=== PATIENT | female | born 1975 | race Caucasian/White ===

== ENCOUNTER → 2020-05-05 12:40 | Outpatient (BNVA) | payer MEDICARE, MEDICAID, SELFPAY | PROVIDERS: PCP Nurse Practitioner Family; Visit Provider Surgery | DX: Z01.818 Encounter for other preprocedural examination (principal); E66.01 Morbid (severe) obesity due to excess calories; R06.02 Shortness of breath; Z68.41 Body mass index [BMI] 40.0-44.9, adult | CPT/HCPCS: 99202 ==

== ENCOUNTER 2020-05-12 09:22 | Outpatient (REF) | payer MEDICARE, MEDICAID, SELFPAY ==
--- NOTE | ~2020-05-12 | XR_ITS ---
EXAMINATION: XR CHEST CLINICAL INFORMATION: Shortness of breath. COMPARISON: None TECHNIQUE: 2 views of the chest were obtained. FINDINGS: No significant abnormality is noted involving the heart, lungs, mediastinum, bony thorax or soft tissues. XR/XR chest 2V IMPRESSION: No acute cardiopulmonary process.
--- NOTE | 2020-05-12 10:11 | ECG_ITS ---
Test Reason : R06.02 Blood Pressure : / mmHG Vent. Rate : 067 BPM Atrial Rate : 067 BPM P-R Int : 126 ms QRS Dur : 084 ms QT Int : 444 ms P-R-T Axes : 021 001 000 degrees QTc Int : 469 ms Sinus rhythm with Premature supraventricular complexes Otherwise normal ECG No previous ECGs available Referred By: Adela Montes Electronically Signed By:Rodolfo Carroll
[2020-05-12 10:55] LABS: MANUAL DIFF FLAG NO
[2020-05-12 11:01] LABS: Basophils Percent Auto 0.4 % (0-2); Eosinophils Absolute Auto 0.1 X10*3/uL (0.0-0.4); Eosinophils Percent Auto 3.1 % (0-4); Hematocrit 37.7 % (37-47); Hemoglobin 12.6 g/dl (12.0-16.0); Imm Gran Abs Auto 0.01 X10*3/uL (0.00-0.03); Imm Gran Pct Auto 0.2 % (0.0-0.4); Lymphocytes Absolute Auto 1.5 X10*3/uL (1.2-4.9); Lymphocytes Percent Auto 34.2 % (20-40); Mean Corpuscular HGB Conc 33.4 g/dl (31.0-35.0); Mean Corpuscular Hemoglobin 29.9 pg (27.0-33.0); Mean Corpuscular Volume 89.3 fL (80-98); Mean Platelet Volume 10.5 fL (9.4-12.3); Monocytes Absolute Auto 0.4 X10*3/uL (0.1-1.2); Monocytes Percent Auto 8.7 % (2-11); Neutrophils Absolute Auto 2.4 X10*3/uL (2.0-8.3); Neutrophils Percent Auto 53.4 % (45-73); Platelet Count 232 X10*3/uL (160-400); Red Blood Count 4.22 X10*6/uL (4.20-5.50); Red Cell Distribution Width 12.3 % (11.0-16.0); White Blood Count 4.5 X10*3/uL (4.8-10.8)
[2020-05-12 11:26] LABS: Alanine Aminotransferase 20 U/L (0-31); Albumin Level 4.3 g/dL (3.5-5.0); Alkaline Phosphatase 54 U/L (39-117); Anion Gap 12 (12-20); Aspartate Amino Transferase 20 U/L (5-31); Bilirubin Total 0.7 mg/dL (0.0-1.0); Blood Urea Nitrogen 18 mg/dL (9-16); C Reactive Protein 0.53 mg/dL (< or = 0.50); Calcium 8.8 mg/dL (8.4-10.2); Carbon Dioxide 27 mmol/L (22-29); Chloride 104 mmol/L (96-108); Cholesterol 197 mg/dL; Estimated Glomerular Filt Rate > 60; Glucose Fasting 87 mg/dL (60-99); HDL Cholesterol 47 mg/dL; Iron 49 mcg/dL (30-160); LDL Cholesterol Calculated 138 mg/dl; Percent Iron Saturation 14 % (15-50); Potassium 4.5 mmol/L (3.3-5.1); Sodium 138 mmol/L (135-145); Total Iron Binding Capacity 361 mcg/dL (228-428); Triglycerides 64 mg/dL; Unsaturated Iron Binding 312 ug/dL
[2020-05-12 11:38] LABS: Thyroid Stimulating Hormone 2.19 uIU/mL (0.32-4.0); Vitamin D 25-OH Total 16.9 ng/mL (>30)
[2020-05-12 12:05] LABS: Vitamin B12 379 pg/mL (200-900)
[2020-05-13 10:37] LABS: PTHI 43 pg/mL (14-64)
[2020-05-16 07:51] LABS: Vitamin B1 15 nmol/L (8-30)
[2020-05-16 09:06] LABS: Vitamin A 32 mcg/dL (38-98)
[2020-05-17 13:08] LABS: Zinc 86 mcg/dL (60-130)
== END 2020-05-12 09:23 | disposition home or self-care (01) ==
LOC: HO.LAB 09:22
PROVIDERS: Visit Provider Surgery
DX: Z01.818 Encounter for other preprocedural examination (principal); R06.02 Shortness of breath
CPT/HCPCS: 36415; 71046; 80053; 80061; 82306; 82607; 83540; 83970; 84425; 84443; 84590; 84630; 85025; 86140; 93005

== ENCOUNTER → 2020-05-23 08:27 | Outpatient (BNVA) | payer MEDICARE, MEDICAID, SELFPAY | PROVIDERS: PCP Nurse Practitioner Family; Visit Provider Surgery | DX: E66.9 Obesity, unspecified (principal); Z68.38 Body mass index [BMI] 38.0-38.9, adult | CPT/HCPCS: 99212 ==

== ENCOUNTER → 2020-06-07 08:00 | Outpatient (BNVA) | payer MEDICARE, MEDICAID, SELFPAY | PROVIDERS: PCP Nurse Practitioner Family; Visit Provider Dietitian, Registered ==

== ENCOUNTER → 2020-06-20 10:31 | Outpatient (BNVA) | payer MEDICARE, MEDICAID, SELFPAY | PROVIDERS: PCP Nurse Practitioner Family; Visit Provider Surgery | DX: E66.9 Obesity, unspecified (principal); Z68.37 Body mass index [BMI] 37.0-37.9, adult | CPT/HCPCS: 99212 ==

== ENCOUNTER → 2020-06-24 08:05 | Outpatient (BNVA) | payer MEDICARE, MEDICAID, SELFPAY | PROVIDERS: PCP Nurse Practitioner Family; Visit Provider Dietitian, Registered | DX: E66.9 Obesity, unspecified (principal); Z68.37 Body mass index [BMI] 37.0-37.9, adult | CPT/HCPCS: 97802 ==

== ENCOUNTER 2020-07-08 15:11 | Outpatient (REF) | payer MEDICARE, MEDICAID, SELFPAY ==
[2020-07-09 14:22] LABS: H Pylori Breath Test NOT DETECTED (NOT DETECTED)
== END 2020-07-08 15:12 | disposition home or self-care (01) ==
LOC: HO.LNP 15:11
PROVIDERS: PCP Nurse Practitioner Family; Visit Provider Surgery
DX: Z01.818 Encounter for other preprocedural examination (principal); E66.9 Obesity, unspecified; Z68.36 Body mass index [BMI] 36.0-36.9, adult; Z11.0 Encounter for screening for intestinal infectious diseases; Z79.899 Other long term (current) drug therapy
CPT/HCPCS: 83013; 99211; 99212

== ENCOUNTER → 2020-07-15 08:01 | Outpatient (BNVA) | payer MEDICARE, MEDICAID, SELFPAY | PROVIDERS: PCP Nurse Practitioner Family; Visit Provider Dietitian, Registered | DX: E66.9 Obesity, unspecified (principal); Z68.36 Body mass index [BMI] 36.0-36.9, adult | CPT/HCPCS: 97803 ==

== ENCOUNTER 2020-07-18 09:44 | Outpatient (REF) | payer MEDICARE, MEDICAID, SELFPAY ==
[2020-07-22 10:42] LABS: Vitamin A 27 mcg/dL (38-98)
== END 2020-07-18 09:45 | disposition home or self-care (01) ==
LOC: HO.LAB 09:44
PROVIDERS: Visit Provider Surgery
DX: Z01.818 Encounter for other preprocedural examination (principal); E50.9 Vitamin A deficiency, unspecified; E55.9 Vitamin D deficiency, unspecified
CPT/HCPCS: 36415; 82306; 84590

== ENCOUNTER → 2020-08-05 09:09 | Outpatient (BNVA) | payer MEDICARE, MEDICAID, SELFPAY | PROVIDERS: Visit Provider Physician Assistant ==

== ENCOUNTER → 2020-08-08 14:18 | Outpatient (BNVA) | payer MEDICARE, MEDICAID, SELFPAY | PROVIDERS: PCP Nurse Practitioner Family; Visit Provider Surgery | DX: E66.9 Obesity, unspecified (principal); Z68.35 Body mass index [BMI] 35.0-35.9, adult | CPT/HCPCS: 99212 ==

== ENCOUNTER 2020-08-10 09:39 | Inpatient (IN) | payer MEDICARE, MEDICAID, SELFPAY ==
[2020-08-03 15:42] VITALS: BMI 36.6
--- NOTE | 2020-08-08 14:59 | ECG_ITS ---
Test Reason : SOB Blood Pressure : / mmHG Vent. Rate : 054 BPM Atrial Rate : 054 BPM P-R Int : 132 ms QRS Dur : 090 ms QT Int : 456 ms P-R-T Axes : 024 001 011 degrees QTc Int : 432 ms Sinus bradycardia Otherwise normal ECG When compared with ECG of 12-MAY-2020 10:23, Premature supraventricular complexes are no longer Present Referred By: Adela Montes Electronically Signed By:PATRICE BALDERRAMA MD
[2020-08-08 15:49] LABS: MANUAL DIFF FLAG NO
[2020-08-08 15:53] LABS: Basophils Percent Auto 0.6 % (0-2); Eosinophils Absolute Auto 0.2 X10*3/uL (0.0-0.4); Eosinophils Percent Auto 4.2 % (0-4); Hematocrit 37.2 % (37-47); Hemoglobin 12.1 g/dl (12.0-16.0); Imm Gran Abs Auto 0.01 X10*3/uL (0.00-0.03); Imm Gran Pct Auto 0.2 % (0.0-0.4); Lymphocytes Absolute Auto 1.7 X10*3/uL (1.2-4.9); Lymphocytes Percent Auto 35.5 % (20-40); Mean Corpuscular HGB Conc 32.5 g/dl (31.0-35.0); Mean Corpuscular Hemoglobin 29.6 pg (27.0-33.0); Mean Platelet Volume 10.2 fL (9.4-12.3); Monocytes Absolute Auto 0.4 X10*3/uL (0.1-1.2); Monocytes Percent Auto 8.8 % (2-11); Neutrophils Absolute Auto 2.4 X10*3/uL (2.0-8.3); Neutrophils Percent Auto 50.7 % (45-73); Platelet Count 236 X10*3/uL (160-400); Red Blood Count 4.09 X10*6/uL (4.20-5.50); Red Cell Distribution Width 12.4 % (11.0-16.0); White Blood Count 4.8 X10*3/uL (4.8-10.8)
[2020-08-08 15:59] LABS: Glucose Urine UA NEG (NEG); Leukocyte Esterase Urine NEG (NEG); Nitrite Urine NEG (NEG); PH 5.5 (5.0-8.0); Specific Gravity - Urine >= 1.030 (1.005-1.025); Urine Blood NEG (NEG); Urine Ketones NEG (NEG); Urine Protein NEG (NEG-TRACE)
[2020-08-08 16:00] LABS: Appearance Urine CLEAR; Color Urine YELLOW
[2020-08-08 16:02] LABS: INTERNATIONAL NORM RATIO 1.1 (0.9-1.1); Prothrombin Time 12.9 SEC (10.8-13.0)
[2020-08-08 16:05] LABS: Partial Thromboplastin Time 32.9 SEC (24.1-38.0)
[2020-08-08 16:13] LABS: Albumin Level 4.1 g/dL (3.5-5.0); Anion Gap 11 (12-20); Blood Urea Nitrogen 14 mg/dL (9-16); Calcium 9.2 mg/dL (8.4-10.2); Carbon Dioxide 29 mmol/L (22-29); Chloride 102 mmol/L (96-108); Creatinine Clr Calc Pharmacy 94.2; Estimated Glomerular Filt Rate > 60; Glucose Random 89 mg/dL (60-115); Sodium 138 mmol/L (135-145)
[2020-08-08 16:24] LABS: UPreg QC Valid YES; Urine Pregnancy NEGATIVE (NEGATIVE)
--- NOTE | 2020-08-09 10:01 | P.CONAN_ITS ---
Documented by User: Janis Faiza 08/09/20 10:02 HPI - Anesthesia Eval Consult details Narrative: 45yo F for Gastrectomy Sleeve PMFSH Active Problems Active Problems: All Active Problems (Updated 08/08/20 @ 16:38 by Adlea Montes MD) BMI 35.0-35.9,adult (Acute) BMI 36.0-36.9,adult (Acute) BMI 37.0-37.9, adult (Acute) Depression (Acute) Obesity (Acute) BMI 38.0-38.9,adult (Acute) Vitamin A deficiency (Acute) Vitamin D deficiency (Acute) BMI 40.0-44.9, adult (Acute) Morbid obesity due to excess calories (Acute) Shortness of breath (Acute) Preoperative examination (Acute) Past Medical History Medical History (Updated 08/10/20 @ 12:26 by Wendy Mcmahon) Arthritis Asthma Depression Fibromyalgia GERD (gastroesophageal reflux disease) Varicose veins of bilateral lower extremities with pain Family History Family History Mother Varicose vein of leg Hypertension Obesity Father Hyperlipidemia Diabetes Prostate cancer Brother No problems noted. Brother No problems noted. Sister No problems noted. Son No problems noted. Son Diabetes Asthma Son Asthma Surgical History Surgical History History of varicose vein stripping Hx of section Hx of tubal ligation Social History Social History Are you a primary critical care registered nurse to a significant other at home: No Do you presently have visiting nurse or other home services: No Alcohol intake: never Smoking Status: Never smoker Use of substances other than those prescribed or required for medical reasons: No Have you been hit, kicked, punched, or otherwise hurt by someone within the past year? If so, by whom?: No Are you DNR?: No Advance Directives: No Advance Directives Information Provided: No Advance Directives on File: No Recently lost weight without trying: No How much weight loss: 24-33 pounds Eating poorly because of decreased appetite: No Nutrition screen score: 3 Nutrition Risks: No Nutritional Risk Patient : No Meds Allergies Allergy/AdvReac Type Severity Reaction Status Date / Time No Known Allergies Allergy Verified 08/10/20 09:54 Home Medications Medication Instructions Recorded Confirmed Last Taken Type albuterol sulfate 90 mcg/actuation 1 puff INHALATION Q4-6H PRN g 05/05/20 08/08/20 Unknown History aerosol inhaler amitriptyline 50 mg tablet mg PO .qhs tab 05/05/20 08/08/20 Unknown History ascorbic acid (vitamin C) 500 mg 500 mg PO DAILY 05/05/20 08/08/20 Unknown History chewable tablet fluticasone propionate 220 2 puff INHALATION BID 05/05/20 08/08/20 Unknown History mcg/actuation HFA aerosol inhaler meclizine 25 mg tablet 25 mg PO DAILY tab 05/05/20 08/08/20 Unknown History montelukast 10 mg tablet 10 mg PO BEDTIME 05/05/20 08/08/20 Unknown History omeprazole 20 mg capsule,delayed 20 mg PO DAILY PRN 05/05/20 08/08/20 Unknown History release oxybutynin chloride 15 mg 15 mg PO DAILY 05/05/20 08/08/20 Unknown History tablet,extended release 24 hr pregabalin 300 mg capsule 300 mg PO BID 05/05/20 08/08/20 Unknown History tizanidine 4 mg tablet 4 mg PO Q6H PRN 05/05/20 08/08/20 Unknown History topiramate 25 mg tablet 25 mg PO BEDTIME 05/05/20 08/08/20 Unknown History venlafaxine 150 mg 150 mg PO DAILY 05/05/20 08/08/20 Unknown History capsule,extended release 24 hr meloxicam 7.5 mg tablet mg PO BID PRN tab 08/08/20 08/08/20 Unknown History Exam Exam Date and Time: August 09, 2020 1001 Height,Weight and Vital Signs: Height 5 ft 2 in Weight 90.718 kg Pertinent Lab Results Pertinent Lab Results: Laboratory Tests 08/08/20 08/08/20 08/08/20 15:00 15:00 15:23 WBC 4.8 RBC 4.09 L Hgb 12.1 Hct 37.2 MCV 91.0 MCH 29.6 MCHC 32.5 RDW 12.4 Plt Count 236 MPV 10.2 Immature Gran % (Auto) 0.2 Neut % (Auto) 50.7 Lymph % (Auto) 35.5 [place] % (Auto) 8.8 Eos % (Auto) 4.2 H Baso % (Auto) 0.6 Lymph # (Auto) 1.7 [place] # (Auto) 0.4 Eos # (Auto) 0.2 Baso # (Auto) 0.0 Abs Immat Gran (auto) 0.01 Absolute Neuts (auto) 2.4 Absolute Nucleated RBC 0.000 Nucleated RBC % (auto) 0.0 PT INR APTT Sodium Potassium Chloride Carbon Dioxide Anion Gap BUN Creatinine Estim Creat Clear Calc Estimated GFR Random Glucose Calcium Albumin Urine Color YELLOW Urine Appearance CLEAR Urine pH 5.5 Ur Specific [place] >= 1.030 H Urine Protein NEG Urine Glucose (UA) NEG Urine Ketones NEG Urine Blood NEG Urine Nitrite NEG Ur Leukocyte Esterase NEG Urine Test NEGATIVE Blood Type Antibody Screen 08/08/20 08/08/20 08/08/20 15:23 15:23 15:23 WBC RBC Hgb Hct MCV MCH MCHC RDW Plt Count MPV Immature Gran % (Auto) Neut % (Auto) Lymph % (Auto) [place] % (Auto) Eos % (Auto) Baso % (Auto) Lymph # (Auto) [place] # (Auto) Eos # (Auto) Baso # (Auto) Abs Immat Gran (auto) Absolute Neuts (auto) Absolute Nucleated RBC Nucleated RBC % (auto) PT 12.9 INR 1.1 APTT 32.9 Sodium 138 Potassium 4.0 Chloride 102 Carbon Dioxide 29 Anion Gap 11 L BUN 14 Creatinine 0.79 Estim Creat Clear Calc 94.2 Estimated GFR > 60 Random Glucose 89 Calcium 9.2 Albumin 4.1 Urine Color Urine Appearance Urine pH Ur Specific [place] Urine Protein Urine Glucose (UA) Urine Ketones Urine Blood Urine Nitrite Ur Leukocyte Esterase Urine Test Blood Type A Negative Antibody Screen NEGATIVE Narrative Narrative: EKG 07/2020 Vent. Rate : 054 BPM Atrial Rate : 054 BPM P-R Int : 132 ms QRS Dur : 090 ms QT Int : 456 ms P-R-T Axes : 024 001 011 degrees QTc Int : 432 ms Sinus bradycardia Otherwise normal ECG When compared with ECG of 12-MAY-2020 10:23, Premature supraventricular complexes are no longer Present Assessment and Plan Assessment Anesthesia Assessment: Chart Reviewed Documented by User: Wendy Mcmahon 08/10/20 12:28 [facility] Past Medical History Medical History (Updated 08/10/20 @ 12:26 by Wendy Mcmahon) Arthritis Asthma Depression Fibromyalgia GERD (gastroesophageal reflux disease) Varicose veins of bilateral lower extremities with pain Family History Family History Mother Varicose vein of leg Hypertension Obesity Father Hyperlipidemia Diabetes Prostate cancer Brother No problems noted. Brother No problems noted. Sister No problems noted. Son No problems noted. Son Diabetes Asthma Son Asthma Family history of problems with anesthesia: No Surgical History Surgical History History of varicose vein stripping Hx of section Hx of tubal ligation History of Problems with Anesthesia: No Social History Social History Are you a primary critical care registered nurse to a significant other at home: No Do you presently have visiting nurse or other home services: No Alcohol intake: never Smoking Status: Never smoker Use of substances other than those prescribed or required for medical reasons: No Have you been hit, kicked, punched, or otherwise hurt by someone within the past year? If so, by whom?: No Are you DNR?: No Advance Directives: No Advance Directives Information Provided: No Advance Directives on File: No Recently lost weight without trying: No How much weight loss: 24-33 pounds Eating poorly because of decreased appetite: No Nutrition screen score: 3 Nutrition Risks: No Nutritional Risk Patient : No Meds Allergies Allergy/AdvReac Type Severity Reaction Status Date / Time No Known Allergies Allergy Verified 08/10/20 09:54 Home Medications Medication Instructions Recorded Confirmed Last Taken Type albuterol sulfate 90 mcg/actuation 1 puff INHALATION Q4-6H PRN g 05/05/20 08/08/20 Unknown History aerosol inhaler amitriptyline 50 mg tablet mg PO .qhs tab 05/05/20 08/08/20 Unknown History ascorbic acid (vitamin C) 500 mg 500 mg PO DAILY 05/05/20 08/08/20 Unknown History chewable tablet fluticasone propionate 220 2 puff INHALATION BID 05/05/20 08/08/20 Unknown History mcg/actuation HFA aerosol inhaler meclizine 25 mg tablet 25 mg PO DAILY tab 05/05/20 08/08/20 Unknown History montelukast 10 mg tablet 10 mg PO BEDTIME 05/05/20 08/08/20 Unknown History omeprazole 20 mg capsule,delayed 20 mg PO DAILY PRN 05/05/20 08/08/20 Unknown History release oxybutynin chloride 15 mg 15 mg PO DAILY 05/05/20 08/08/20 Unknown History tablet,extended release 24 hr pregabalin 300 mg capsule 300 mg PO BID 05/05/20 08/08/20 Unknown History tizanidine 4 mg tablet 4 mg PO Q6H PRN 05/05/20 08/08/20 Unknown History topiramate 25 mg tablet 25 mg PO BEDTIME 05/05/20 08/08/20 Unknown History venlafaxine 150 mg 150 mg PO DAILY 05/05/20 08/08/20 Unknown History capsule,extended release 24 hr meloxicam 7.5 mg tablet mg PO BID PRN tab 08/08/20 08/08/20 Unknown History Exam Height,Weight and Vital Signs: Vital Signs Temp Pulse Resp BP Pulse Ox 08/10/20 10:13 96.9 F 72 18 112/59 L 99 Pertinent Lab Results Pertinent Lab Results: Laboratory Results - last 24 hr 08/10/20 09:48 COVID-19 (BREANNA) Negative COVID-19 Clin Com See Note Airway Mallampati Class: II TM Dist: >3cm Neck ROM: Full Heart: RRR Lungs: CTAB Assessment and Plan Assessment Anesthesia Assessment: Anesthesia Plan Discussed and Chart Reviewed Final Anesthetic Review NPO: Yes ASA Class: III Final Preanesthetic Review: No Changes in Pt Med Stat, Meds/Allgs Chart Reviewed, Consent Obtained/Reviewed and Anes Risks/Benef Reviewed Patient Risk: Intermediate Procedure Risk: Intermediate Assessment/Block/Sedation in SS: Assess/Block/Sedation-SS Anesthetic Plan Anesthetic Plan: GA Disposition: Standard PACU
--- NOTE | 2020-08-09 16:51 | MHC.SHP ---
Pre-Procedural Eval Section B Chief Complaint: obesity Allergies: Allergies Allergy/AdvReac Type Severity Reaction Status Date / Time No Known Allergies Allergy Verified 08/08/20 16:37 Plan I have reviewed the history and physical and performed a pertinent physical examination on my patient. No changes have occurred unless specified.
[2020-08-10] VITALS (14 sets, daily range): BP systolic 112–172; BP diastolic 59–86; PULSE 66–73; RESP 16–19; TEMP 35.9–36.9; O2SAT 96–100
[2020-08-10 10:10] LABS: COVID-19 Test Negative (Negative)
[2020-08-10] MEDS: Lactated Ringers 1,000 ML 100 ML IVCONT (10:16)
--- NOTE | 2020-08-10 13:42 | PM.OP ---
Brief Operative Note Date of Service: 08/10/20 Pre-op diagnosis: Obesity, BMI 35.8 Post-op diagnosis: other (Same and hiatal hernia) Procedure: Laparoscopic sleeve gastrectomy, hiatal hernia repair, Fred block, and intraoperative endoscopy Implants: Covidien chavez Surgeon: Adela Montes MD Anesthesia: GETA Was an Quality Engineer Medical Device used for this Procedure?: Yes Quality Engineer Medical Device: Sofi Obando Estimated blood loss (mL): 10 Pathology: other (Partial gastrectomy) Condition: stable Disposition: PACU
--- NOTE | 2020-08-10 13:45 | P.OP_ITS ---
Operative Note Operative Note Date of Service: 08/10/20 Narrative: Patient was brought into the operating room and placed on the operating room table in the supine position. General anesthesia was induced. Normal DVT prophylaxis was instituted and the patient received 2 grams of cefotetan preoperatively. The abdomen was then prepped and draped in the normal sterile fashion. A safety time-out was performed. A mixture of 1% lidocaine with epinephrine and ?% Marcaine plain was used to an esthetize the planned incision site in the left upper quadrant. A #11 scalpel was used to make a 5 mm left upper quadrant transverse incision through which a veress needle was placed. Three pops were heard going through the fascia. A saline drop test was used to confirm that the veress needle was intraabdominal. An optiview technique was then used to place a 5mm port in the left upper quadrant. A 5 mm 30 degree laproscope was then placed through this port and the abdominal cavity was surveyed and was normal. The patient was placed in reverse Trendelenburg positioning. A mike liver retractor was then placed in the subxyphoid position and it was used to hold up the left lobe of the liver to the abdominal wall. This was secured to the bed using the liver retractor abdi. A JOEL block was then performed for pain control on the right side of the abdomen. A 5 mm port was placed in the right upper quadrant near the falciform ligament. A 12 mm port was then placed in the mid epigastrium. One additional 5 mm port was placed in the left upper quadrant just to the left of the placement of the first port. I then performed a JOEL block on the left side of the abdomen. I then removed the epigastric fat pad; there was a small anterior hiatal hernia noted. I reapproximated the left and right crura with a total of 2 stitches of 2-0 ethibond and a laparoscopic knot pusher. There was no residual hiatal hernia. I then opened up the angle of His. We then gained entry into the lesser sac about 4-5 cm from the pylorus. I had anesthesia place a 34 [place] orogastric tube into the distal antrum to use as a sizing tool for gastric pouch size. I divided the short gastric vessels up to the angle of His. We then started the creation of the gastric pouch by firing a 60 mm purple load endostapler up the stomach about 4-5 cm from the pylorus. We completed the creation of the gastric pouch using a total of 4 firings of a 60 mm purple load stapler. We had anesthesia remove the orogastric tube, then we clamped across the distal antrum using a fired 60 mm endostapler. We flattened the patient and then instilled normal saline surrounding the newly created staple line. I then performed an on-table endoscopy. I passed the gastroscopy into the posterior oropharynx and down the esophagus evaluating the esophageal mucosa which was normal. There was no evidence of hiatal hernia. I passed the gastroscope into the gastric pouch and insufflated the gastric pouch. There was healthy pink mucosa and no evidence of active bleeding. There was no evidence of leak on laparoscopy. I desufflated the gastric pouch and removed the endoscope. I removed the endostapler from the abdomen and suctioned the fluid from the left upper quadrant. I then removed the partial gastrectomy specimen through the epigastric 12 mm port site. I reapproximated the 12 mm port using a 0 maxon suture with a laparoscopic suture passer. I instilled local anesthetic into the fascial closure site and tied the suture down at a pressure of 8-10 mm of Hg. There was no residual fascial defect. We removed the liver retractor and the left upper quadrant 5 mm ports under direct visualization. There was no evidence of any active bleeding. I desufflated the abdomen through the last remaining port and removed the laparoscope and 5 mm port. We reapproximated all incisions with a 4-0 monocryl subcuticular stitch. We cleaned and dried the abdominal skin and applied dermabond skin glue. All count were correct at the end of the case. The patient was awake and in stable condition prior to extubation and transfer to the recovery room.
--- NOTE | 2020-08-10 13:54 | PM.PNGS ---
Subjective Subjective Date of Service: 08/10/20 <Sofi Obando PA-C - Last Filed: 08/10/20 20:27> 08/11/20 <Adela Montes MD - Last Filed: 08/11/20 09:38> Interval history: Pod #1 s/p LSG and HH repair. Doing well. Tolerating stage 3 diet, ambulating in hallway. Pain well controlled. Denies nausea or vomiting. Vitals and labs reviewed and are within limit for post op day 1. On exam, patient is well appearing, abdomen is soft, nd, mild appropriate incisional tenderness. Incisions c/d/I with dermabond in place. Plan: d/c home today. Follow up with me in 2 weeks. <Sofi Obando PA-C - Last Filed: 08/10/20 20:27> Physical Exam Vital Signs: Vital Signs: Last Vital Signs Temp 98.4 F 08/10/20 13:33 Pulse 70 08/10/20 13:48 Resp 17 08/10/20 13:48 BP 138/63 08/10/20 13:48 Pulse Ox 100 08/10/20 13:48 Body Mass Index 36.6 <Sofi Obando PA-C - Last Filed: 08/10/20 20:27> Const: General: cooperative, comfortable, no acute distress, alert and awake <Sofi Obando PA-C - Last Filed: 08/10/20 20:27> Nutritional Appearance: obese <Sofi Obando PA-C - Last Filed: 08/10/20 20:27> GI: Inspection: Yes normal to inspection, No distended and Yes incision (clean, dry, intact, dermabond in place) <Sofi Obando PA-C - Last Filed: 08/10/20 20:27> Palpation (GI): Soft to palpation and Tenderness to palpation present (GI) (mild appropriate incisional tenderness) <Sofi Obando PA-C - Last Filed: 08/10/20 20:27> Extrem: Right lower extremity: lower leg Details: no tenderness; no edema <Sofi Obando PA-C - Last Filed: 08/10/20 20:27> Left lower extremity: lower leg Details: no tenderness; no edema <Sofi Obando PA-C - Last Filed: 08/10/20 20:27> Progress Note: A&P Assessment and plan (1) Obesity: Status: Acute <Sofi Obando PA-C - Last Filed: 08/10/20 20:27> (2) Intestinal malabsorption following gastrectomy: Status: Acute <DANIELLE Avendano Last Filed: 08/10/20 20:27> (3) History of repair of hiatal hernia: Status: Acute <DANIELLE Avendano Last Filed: 08/10/20 20:27> (4) Hiatal hernia: Status: Acute <DANIELLE Avendano Last Filed: 08/10/20 20:27> (5) S/P laparoscopic sleeve gastrectomy: Status: Acute <DANIELLE Avendano Last Filed: 08/10/20 20:27> (6) BMI 36.0-36.9,adult: Status: Acute <Sofi Obando PA-C - Last Filed: 08/10/20 20:27> Assessment and Plan: d/c home today. Follow up in 2 weeks. <DANIELLE Avendano Last Filed: 08/10/20 20:27> Fall Risk Details Current Medications: Current Medications Generic Name Dose Route Start Last Admin Trade Name Freq PRN Reason Stop Dose Admin Albuterol Sulfate 2.5 mg 08/10/20 09:38 Albuterol Sulfate (0.083%) 2.5 Mg/3 Ml Vial.Neb INHALE ONCE PRN Shortness of Breath/Wheezing Fentanyl 25 mcg 08/10/20 11:45 Fentanyl Citrate/Pf 100 Mcg/2 Ml Vial IVPUSH Q5M PRN Pain, Moderate (Pain Scale 4-6 Hydromorphone HCl 0.25 mg 08/10/20 11:50 Hydromorphone Hcl 0.5 Mg/0.5 Ml Syringe IVPUSH Q5M PRN Pain, Severe (Pain Scale 7-10) Lactated Ringer's 1,000 mls @ 100 mls/hr 08/10/20 09:45 08/10/20 10:16 Lr IVCONT 100 mls/hr .Q10H COY Administration Promethazine HCl 6.25 mg/ 50.25 mls @ 201 mls/hr 08/10/20 11:50 Sodium Chloride IV ONCE PRN Nausea and Vomiting Ondansetron HCl 4 mg 08/10/20 11:50 Ondansetron Hcl 4 Mg/2 Ml Vial IVPUSH ONCE PRN Nausea and Vomiting <Sofi Obando PA-C - Last Filed: 08/10/20 20:27> Time Spent With Patient Time: Total time spent is greater than 50% in coordination of care (as documented) at patient's floor/unit and/or counseling patient: <Sofi Obando PA-C - Last Filed: 08/10/20 20:27> Time with patient: less than 15 minutes <Adela Montes MD - Last Filed: 08/11/20 09:38> Procedures Date of Service Date of Service: 08/11/20 <Adela Montes MD - Last Filed: 08/11/20 09:38>
[2020-08-10] MEDS: Famotidine/PF 20 MG/2 ML VIAL IVPUSH ×2 (14:15→20:52)
[2020-08-10] MEDS: HYDROmorphone HCl 0.5 MG/0.5 ML SYRINGE 0.25 MG IVPUSH ×2 (14:22→18:13)
[2020-08-10] MEDS: ondansetron HCL 4 MG/2 ML VIAL IVPUSH ×2 (14:29→20:52)
[2020-08-10] MEDS: Metoclopramide HCl 10 MG/2 ML VIAL IVPUSH (15:28)
[2020-08-10] MEDS: Lactated Ringers 1,000 ML 125 ML IVCONT ×2 (15:33→22:13)
[2020-08-10] MEDS: Fluticasone Propionate 250 MCG BLST.W.DEV 2 PUFF INHALE (20:13)
--- NOTE | 2020-08-10 20:32 | PM.DS ---
DS: Providers Provider Date of Service: 08/11/20 Date of admission: 08/10/20 09:39 Primary care physician: Unknown Physician DS: Diagnosis Discharge Diagnosis (1) Obesity: Status: Acute (2) Intestinal malabsorption following gastrectomy: Status: Acute (3) History of repair of hiatal hernia: Status: Acute (4) Hiatal hernia: Status: Acute (5) S/P laparoscopic sleeve gastrectomy: Status: Acute (6) BMI 36.0-36.9,adult: Status: Acute DS: Medications Discharge Medications Home Medications: Home Medications Medication Instructions Recorded Confirmed albuterol sulfate 90 mcg/actuation 1 puff INHALATION Q4-6H PRN g 05/05/20 08/08/20 aerosol inhaler amitriptyline 50 mg tablet mg PO .qhs tab 05/05/20 08/08/20 ascorbic acid (vitamin C) 500 mg 500 mg PO DAILY 05/05/20 08/08/20 chewable tablet fluticasone propionate 220 2 puff INHALATION BID 05/05/20 08/08/20 mcg/actuation HFA aerosol inhaler meclizine 25 mg tablet 25 mg PO DAILY tab 05/05/20 08/08/20 montelukast 10 mg tablet 10 mg PO BEDTIME 05/05/20 08/08/20 omeprazole 20 mg capsule,delayed 20 mg PO DAILY PRN 05/05/20 08/08/20 release oxybutynin chloride 15 mg 15 mg PO DAILY 05/05/20 08/08/20 tablet,extended release 24 hr pregabalin 300 mg capsule 300 mg PO BID 05/05/20 08/08/20 tizanidine 4 mg tablet 4 mg PO Q6H PRN 05/05/20 08/08/20 topiramate 25 mg tablet 25 mg PO BEDTIME 05/05/20 08/08/20 venlafaxine 150 mg 150 mg PO DAILY 05/05/20 08/08/20 capsule,extended release 24 hr Previous Rx's Medication Instructions Recorded vitamin A palmitate 10,000 unit 20,000 unit PO DAILY 30 Days #60 07/22/20 tablet tab acetaminophen 500 mg tablet 1,000 mg PO Q6H PRN #30 tab 08/08/20 docusate sodium 100 mg capsule 100 mg PO BID #30 cap 08/08/20 ondansetron HCl 4 mg tablet 4 mg PO Q6H PRN #30 tab 08/08/20 simethicone 80 mg chewable tablet 80 mg PO TID-QID PRN #30 tab 08/08/20 DS: Summary Time Spent with Patient Time attestation: Total time spent providing and/or coordinating discharge services: Discharge coordination time: Greater than 30 minutes Quality: Stroke Does the patient have a stroke diagnosis?: No Physical Exam Vital Signs: Vital Signs: Last Vital Signs Temp 97.7 F 08/10/20 19:37 Pulse 71 08/10/20 20:20 Resp 19 08/10/20 19:37 BP 133/68 08/10/20 19:37 Pulse Ox 96 08/10/20 19:37 Body Mass Index 36.6 DS: Data Data Completed and Pending Pending studies at discharge: Pending at discharge 08/10/20 13:00 Surgical [PTH] Routine Labs on day of discharge: Laboratory Results - last 24 hr 08/10/20 09:48 COVID-19 ([facility]) Negative COVID-19 Clin Com See Note Discharge Plan Discharge Patient Disposition: Home, Self-Care Discharge Diagnosis: obesity s/ LSG and HH repair Referrals: Physician,Unknown [Primary Care Provider] - 1 Week Discharge Medications: Continued vitamin A palmitate 10,000 unit tablet 20,000 unit PO DAILY 30 Days Qty: 60 RF: 1 topiramate 25 mg tablet 25 mg PO BEDTIME RF: 0 venlafaxine 150 mg capsule,extended release 24hr 150 mg PO DAILY RF: 0 fluticasone propionate 220 mcg/actuation HFA aerosol inhaler 2 puff inhalation BID RF: 0 pregabalin 300 mg capsule 300 mg PO BID RF: 0 tizanidine 4 mg tablet 4 mg PO Q6H PRN (Reason: Muscle Spasm) RF: 0 oxybutynin chloride 15 mg tablet extended release 24hr 15 mg PO DAILY RF: 0 ascorbic acid (vitamin C) 500 mg tablet,chewable 500 mg PO DAILY RF: 0 montelukast 10 mg tablet 10 mg PO BEDTIME RF: 0 albuterol sulfate 90 mcg/actuation HFA aerosol inhaler 1 puff inhalation Q4-6H PRN (Reason: shortness of breath or wheezing) RF: 0 amitriptyline 50 mg tablet PO .qhs RF: 0 meclizine 25 mg tablet 25 mg PO DAILY RF: 0 omeprazole 20 mg capsule,delayed release(DR/EC) 20 mg PO DAILY PRN (Reason: Acid Reflux) RF: 0 acetaminophen [Tylenol Extra Strength] 500 mg tablet 1,000 mg PO Q6H PRN (Reason: pain) Qty: 30 RF: 1 simethicone [Gas Relief (simethicone)] 80 mg tablet,chewable 80 mg PO TID-QID PRN (Reason: abdominal distention) Qty: 30 RF: 1 ondansetron HCl [Zofran] 4 mg tablet 4 mg PO Q6H PRN (Reason: nausea and vomiting) Qty: 30 RF: 1 docusate sodium [Colace] 100 mg capsule 100 mg PO BID Qty: 30 RF: 1 Discontinued meloxicam 7.5 mg tablet PO BID PRNRF: 0 Discharge Orders: Discharge Order (Routine); Ordered 08/11/20 Ordered By: Adela Montes Diet: other Activity on Discharge: No heavy lifting Stand Alone Forms: Patient Portal Discharge page Activity Restrictions/Additional Instructions: Discharge Instructions 1. Please call your doctor or come back to the emergency room should any new symptoms arise. 2. You will receive a courtesy call from [facility] 24-48 hours after discharge. 3. Activity: abstain from alcohol, practice limited stair climbing, no bending, no driving, no exercise, no illicit substances, no lifting, no sex, no tub bath, no work. 4. Diet: continue stage 3 protein shakes until your [address] Montes. 5. Dressing Change/Wound Care: Your incision is covered by surgical glue. If the area is tender, you may apply an ice pack for short intervals (no more than 20 minutes on, followed by at least 20 minutes off). Do not apply heat. Do not use creams, lotions, or topical antibiotics unless instructed to do so by your surgeon. These can cause infection or allergic reaction. 6. Call your doctor if: - Your temperature exceeds 101.5 F - You experience excessive pain or swelling - You have an unexpected reaction to medication - You have excessive bleeding - You experience continued vomiting/nausea - Your incision begins to separate - Your incision shows signs of infection such as increased redness, swelling, excessive pain, heat, or drainage (light blood or clear fluid is normal) 7. General instructions: - No lifting greater than 5 lbs for the next 4 weeks. - No driving within 24 hours of taking narcotic pain medications. - If you do not move your bowels in the next 2 days, please take milk of magnesia over the counter. Please follow the post op diet and do not advance your diet until you are seen in the office in about 2 weeks. - Please walk around your home every hour or two to prevent blood clots from forming in your legs. You do not need to wake from sleeping to walk. - Please sleep in a bed or couch to prevent kinking at the hips and knees. - Please take your incentive spirometer (your lung systems integration manager) home with you and use it for the next few days to prevent pneumonias. - You may shower, no hot tubs, baths or swimming pools. - Please call the office with any questions or concerns such as increasing abdominal pain, fever, chills, shortness of breath, chest pain, leg pain or swelling, or redness or drainage from your incisions. - Please stay on stage 3 diet which includes sugar free clear liquids such as ice pops and jello and broth and crystal light. Avoid all carbonation. Please drink 3 protein shakes with at least 25-30 grams of protein daily or 3 of the Celebrate 4:1 shakes which can be purchased in our office. The Celebrate shakes have all of the bariatric vitamins you need if you consume these shakes. If you are drinking other protein shakes, you will need to purchase the Celebrate multivitamins and calcium that we provide in the office (they will provide all the vitamins you need). Please make sure you are consuming at least 40-60 ounces of water in addition to your 3 protein shakes daily. 8. Do not hesitate to contact the office with any questions at . Discharge Summary Date of Service: 08/11/20 Admitting Diagnosis: obesity Discharge Diagnosis: same, and hiatal hernia Procedure Performed: LSG, TAP block, HH repair, intraoperative endoscopy Discharge Medications: 1. Simethicone 80mg tablet chewable (Si tablet every 6 hours orally for 7 days, #28, 1 RF) q4h prn gas 2. Acetaminophen 500 mg tablet (Si tablets as needed every 6 hours orally for 30 days, #240, 0 RF) 3. Ondansetron 4 mg tablet disintegrating (Si tablet every 6 hours orally for 7 days, #28, 1 RF) 4. Colace 100 mg capsule (Si capsule twice a day for 30 days, #60, 2 RF) 5. Pepcid 20 mg chewable tablet (Si tablet twice a day for 30 days, #60, 3 RF) Discharge Instructions: The patient should continue on the stage III bariatric diet, which includes 3 protein shakes of at least 20-30g of protein on a daily basis. The patient was encouraged to avoid drinking liquids with her protein shakes. They should wait 30-45 minutes in between her meals and drinking water. She should drink at least 40-60 ounces of water on a daily basis. They should ambulate while at home to avoid any blood clots in her lower extremities. They should call with any questions or concerns such as increase in abdominal pain, persistent nausea, vomiting, redness and drainage from her incisions, fever, chills, shortness of breast, or chest pain beyond what is normal for her. The patient should avoid all heavy lifting greater than 5 pounds for the next 4 weeks. The patient is already scheduled to follow up with me in 2 weeks time, but should call the office with any questions prior to that follow up appointment. The patient should not advance their diet until they are seen in the office for the 2 week appointment. Hospital Course: The patient was admitted after undergoing LSG and HH repair. They were started on stage II (1 oz of fluid every 15 minutes) on POD #0. The next morning they were evaluated and started on stage III diet (protein shakes). All labs were within normal limits. On post-operative day #1 she was feeling better, nausea and epigastric pain improved and they were tolerating stage III bariatric diet well. The patient was discharged home. Discharge Disposition: Home. Care Plan Goals: weight loss Health Concerns: obesity Plan of Treatment: s/p LSG Assessment: doing well pod#1, d/c home Discharge Date/Time: 08/11/20 09:47
[2020-08-10] MEDS: 0.9 % Sodium Chloride Flush 3 ML SYRINGE IVFLUSH (20:53)
[2020-08-10] MEDS: Pregabalin 150 MG CAPSULE 300 MG PO (20:53)
[2020-08-10] MEDS: cefoTEtan disodium 2 GM in 0.9 % Sodium Chloride 50 ML IV (23:27)
[2020-08-11 04:00] VITALS: BP 134/73; PULSE 70; RESP 16; TEMP 37.1; O2SAT 99
[2020-08-11] MEDS: ondansetron HCL 4 MG/2 ML VIAL IVPUSH (04:36)
[2020-08-11] MEDS: Lactated Ringers 1,000 ML 125 ML IVCONT (06:08)
[2020-08-11 07:32] VITALS: BP 104/53; PULSE 69; RESP 17; TEMP 37; O2SAT 99
[2020-08-11] MEDS: Famotidine/PF 20 MG/2 ML VIAL IVPUSH (07:41)
[2020-08-11] MEDS: Fluticasone Propionate 250 MCG BLST.W.DEV 2 PUFF INHALE (07:43)
[2020-08-11 08:38] LABS: MANUAL DIFF FLAG NO
[2020-08-11 08:42] LABS: Basophils Percent Auto 0.2 % (0-2); Hematocrit 35.2 % (37-47); Hemoglobin 11.8 g/dl (12.0-16.0); Imm Gran Abs Auto 0.03 X10*3/uL (0.00-0.03); Imm Gran Pct Auto 0.2 % (0.0-0.4); Lymphocytes Absolute Auto 1.4 X10*3/uL (1.2-4.9); Lymphocytes Percent Auto 11.9 % (20-40); Mean Corpuscular HGB Conc 33.5 g/dl (31.0-35.0); Mean Corpuscular Hemoglobin 30.3 pg (27.0-33.0); Mean Corpuscular Volume 90.5 fL (80-98); Mean Platelet Volume 10.4 fL (9.4-12.3); Monocytes Absolute Auto 0.8 X10*3/uL (0.1-1.2); Neutrophils Absolute Auto 9.7 X10*3/uL (2.0-8.3); Neutrophils Percent Auto 80.7 % (45-73); Platelet Count 249 X10*3/uL (160-400); Red Blood Count 3.89 X10*6/uL (4.20-5.50); Red Cell Distribution Width 12.6 % (11.0-16.0); White Blood Count 12.1 X10*3/uL (4.8-10.8)
[2020-08-11] MEDS: Metoclopramide HCl 10 MG/2 ML VIAL IVPUSH (08:43)
--- NOTE | 2020-08-11 09:08 | MHC.CM.PN ---
pt lives alone in her apt. she reports that she is independent in her adl's. she does have a daughter that lives in the area and can help her should she have any needs, this will include a ride home at dc. pt denies the need for vna at dc. dc plan is home no svcs. cm to cont. to follow.
[2020-08-11 09:09] LABS: Anion Gap 13 (12-20); Carbon Dioxide 25 mmol/L (22-29); Chloride 103 mmol/L (96-108); Creatinine Clr Calc Pharmacy 95.4; Estimated Glomerular Filt Rate > 60; Glucose Random 99 mg/dL (60-115); Potassium 4.5 mmol/L (3.3-5.1); Sodium 136 mmol/L (135-145)
[2020-08-11 09:23] LABS: Blood Urea Nitrogen 7 mg/dL (9-16); Calcium 8.5 mg/dL (8.4-10.2)
--- NOTE | 2020-08-11 13:34 | HO.POSTANES ---
Post Anesthesia Evaluation Post Anesthesia Evaluation Vital Signs: Vital Signs Temp Pulse Resp BP Pulse Ox 08/11/20 07:32 98.6 F 69 17 104/53 L 99 08/11/20 04:00 98.8 F 70 16 134/73 99 Anesthesia: General Endotracheal-GETA Mental Status: Awake Pain Control: Satisfactory Nausea/Vomiting: None Hydration: Adequate Anesthesia-Related Issues: No Anes. Related Issues
== END 2020-08-11 09:47 | disposition home or self-care (01) | DRG 621 ==
LOC: HO.SSSA 09:44 → HO.S3 14:26
PROVIDERS: Physician Assistant; Admitting Provider Surgery; Visit Provider Surgery
PROC: 0DB64Z3 Excision of Stomach, Percutaneous Endoscopic Approach, Vertical (ICD-10-PCS; CPT 43845; principal; 2020-08-10 10:50)
DX: E66.01 Morbid (severe) obesity due to excess calories (principal); K21.9 Gastro-esophageal reflux disease without esophagitis; K44.9 Diaphragmatic hernia without obstruction or gangrene; Z20.822 Contact with and (suspected) exposure to COVID-19; Z68.36 Body mass index [BMI] 36.0-36.9, adult; Z79.51 Long term (current) use of inhaled steroids; Z79.899 Other long term (current) drug therapy
CPT/HCPCS: 36415; 80048; 81003; 81025; 82040; 85025; 85610; 85730; 86850; 86900; 86901; 87635; 88307; 88342; 93005; 94640; 99024; 99212; C1776; J0131; J1100; J1170; J2250; J2370; J2405; J2765; J3010

== ENCOUNTER → 2020-08-25 14:10 | Outpatient (BNVA) | payer MEDICARE, MEDICAID, SELFPAY | PROVIDERS: PCP Nurse Practitioner Family; Visit Provider Surgery | DX: Z98.84 Bariatric surgery status (principal); Z98.890 Other specified postprocedural states; Z87.19 Personal history of other diseases of the digestive system | CPT/HCPCS: 99212 ==

== ENCOUNTER → 2020-09-22 09:35 | Outpatient (BNVA) | payer MEDICARE, MEDICAID, SELFPAY | PROVIDERS: PCP Nurse Practitioner Family; Visit Provider Physician Assistant | DX: E66.9 Obesity, unspecified (principal); Z90.3 Acquired absence of stomach [part of]; Z98.890 Other specified postprocedural states; Z87.19 Personal history of other diseases of the digestive system | CPT/HCPCS: 99212 ==

== ENCOUNTER → 2020-10-13 13:47 | Outpatient (BNVA) | payer MEDICARE, MEDICAID, SELFPAY | PROVIDERS: PCP Nurse Practitioner Family; Visit Provider Dietitian, Registered | DX: E66.9 Obesity, unspecified (principal); R10.9 Unspecified abdominal pain | CPT/HCPCS: 97803 ==

== ENCOUNTER → 2020-11-03 14:03 | Outpatient (BNVA) | payer MEDICARE, MEDICAID, SELFPAY | PROVIDERS: PCP Nurse Practitioner Family; Visit Provider Physician Assistant | DX: E66.9 Obesity, unspecified (principal); Z98.890 Other specified postprocedural states; Z87.19 Personal history of other diseases of the digestive system; Z90.3 Acquired absence of stomach [part of] | CPT/HCPCS: 99212 ==

== ENCOUNTER → 2020-11-23 08:28 | Outpatient (BNVA) | payer MEDICARE, MEDICAID, SELFPAY | PROVIDERS: PCP Nurse Practitioner Family; Visit Provider Dietitian, Registered | DX: E66.9 Obesity, unspecified (principal) | CPT/HCPCS: 97803 ==

== ENCOUNTER → 2020-12-01 10:59 | Outpatient (BNVA) | payer MEDICARE, MEDICAID, SELFPAY | PROVIDERS: PCP Nurse Practitioner Family; Referring Provider Nurse Practitioner Family; Visit Provider Surgery | DX: E66.3 Overweight (principal); Z68.39 Body mass index [BMI] 39.0-39.9, adult; Z98.84 Bariatric surgery status | CPT/HCPCS: Q3014 ==

== ENCOUNTER → 2021-02-09 08:13 | Outpatient (BNVA) | payer MEDICARE, MEDICAID, SELFPAY | PROVIDERS: PCP Nurse Practitioner Family; Visit Provider Physician Assistant Surgical ==

== ENCOUNTER → 2021-03-09 08:11 | Outpatient (BNVA) | payer MEDICARE, MEDICAID, SELFPAY | PROVIDERS: PCP Nurse Practitioner Family; Visit Provider Dietitian, Registered | DX: E66.3 Overweight (principal); Z68.27 Body mass index [BMI] 27.0-27.9, adult | CPT/HCPCS: 97803 ==

== ENCOUNTER 2021-03-13 08:46 | Outpatient (REF) | payer MEDICARE, MEDICAID, SELFPAY ==
[2021-03-13 09:02] LABS: MANUAL DIFF FLAG NO
[2021-03-13 10:01] LABS: Basophils Percent Auto 0.6 % (0-2); Eosinophils Absolute Auto 0.1 X10*3/uL (0.0-0.4); Eosinophils Percent Auto 2.1 % (0-4); Hematocrit 35.8 % (37.0-47.0); Hemoglobin 11.9 g/dl (12.0-16.0); Imm Gran Abs Auto 0.01 X10*3/uL (0.00-0.03); Imm Gran Pct Auto 0.2 % (0.0-0.4); Lymphocytes Absolute Auto 1.7 X10*3/uL (1.2-4.9); Lymphocytes Percent Auto 35.6 % (20-40); Mean Corpuscular HGB Conc 33.2 g/dl (31.0-35.0); Mean Corpuscular Hemoglobin 30.4 pg (27.0-33.0); Mean Corpuscular Volume 91.3 fL (80.0-98.0); Mean Platelet Volume 10.7 fL (9.4-12.3); Monocytes Absolute Auto 0.3 X10*3/uL (0.1-1.2); Monocytes Percent Auto 7.1 % (2-11); Neutrophils Absolute Auto 2.6 x10*3/uL (2.0-8.3); Neutrophils Percent Auto 54.4 % (45-73); Platelet Count 221 X10*3/uL (160-400); Red Blood Count 3.92 X10*6/uL (4.20-5.50); Red Cell Distribution Width 12.3 % (11.0-16.0); White Blood Count 4.8 X10*3/uL (4.8-10.8)
[2021-03-13 10:12] LABS: Estimated Average Glucose 103 mg/dL; Hemoglobin A1c % 5.2 %
[2021-03-13 10:25] LABS: Blood Urea Nitrogen 13 mg/dL (9-16); C Reactive Protein 0.08 mg/dL (< or = 0.50); Calcium 9.1 mg/dL (8.4-10.2); Cholesterol 195 mg/dL; Estimated Glomerular Filt Rate > 60; Glucose Random 88 mg/dL (60-115); HDL Cholesterol 57 mg/dL; Iron 71 mcg/dL (30-160); LDL Cholesterol Calculated 127 mg/dl; Percent Iron Saturation 21 % (15-50); Total Iron Binding Capacity 331 mcg/dL (228-428); Triglycerides 59 mg/dL; Unsaturated Iron Binding 260 ug/dL
[2021-03-13 10:31] LABS: Anion Gap 9 (12-20); Carbon Dioxide 30 mmol/L (22-29); Chloride 105 mmol/L (96-108); Potassium 4.1 mmol/L (3.3-5.1); Sodium 140 mmol/L (135-145)
[2021-03-13 10:38] LABS: Ferritin 14 ng/mL (10-250); Vitamin D 25-OH Total 16.9 ng/mL (>30)
[2021-03-13 10:46] LABS: Folate 10.1 ng/mL (> or = 4.0); Vitamin B12 242 pg/mL (200-900)
[2021-03-14 11:42] LABS: PTHI 59 pg/mL (14-64)
[2021-03-17 00:12] LABS: Zinc 59 mcg/dL (60-130)
[2021-03-17 10:06] LABS: Vitamin B1 15 nmol/L (8-30)
[2021-03-21 18:01] LABS: Vitamin A 23 mcg/dL (38-98)
== END 2021-03-13 08:47 | disposition home or self-care (01) ==
LOC: HO.LAB 08:46
PROVIDERS: Visit Provider Physician Assistant Surgical
DX: E66.3 Overweight (principal); K91.2 Postsurgical malabsorption, not elsewhere classified; Z90.3 Acquired absence of stomach [part of]; Z98.84 Bariatric surgery status
CPT/HCPCS: 36415; 80048; 80061; 82306; 82607; 82728; 82746; 83036; 83540; 83970; 84425; 84443; 84590; 84630; 85025; 86140

== ENCOUNTER → 2021-04-11 11:02 | Outpatient (BNVA) | payer MEDICARE, MEDICAID, SELFPAY | PROVIDERS: PCP Nurse Practitioner Family; Visit Provider Physician Assistant Surgical | DX: E50.9 Vitamin A deficiency, unspecified (principal); E55.9 Vitamin D deficiency, unspecified; Z98.84 Bariatric surgery status | CPT/HCPCS: 99212 ==

== ENCOUNTER 2021-06-28 10:55 | Outpatient (REF) | payer MEDICARE, MEDICAID, SELFPAY ==
[2021-06-28 12:02] LABS: MANUAL DIFF FLAG NO
[2021-06-28 12:21] LABS: Basophils Percent Auto 0.5 % (0-2); Eosinophils Absolute Auto 0.2 X10*3/uL (0.0-0.4); Eosinophils Percent Auto 4.2 % (0-4); Hematocrit 36.6 % (37.0-47.0); Hemoglobin 11.8 g/dl (12.0-16.0); Imm Gran Abs Auto 0.01 X10*3/uL (0.00-0.03); Imm Gran Pct Auto 0.3 % (0.0-0.4); Lymphocytes Absolute Auto 1.7 X10*3/uL (1.2-4.9); Lymphocytes Percent Auto 43.9 % (20-40); Mean Corpuscular HGB Conc 32.2 g/dl (31.0-35.0); Mean Corpuscular Hemoglobin 29.5 pg (27.0-33.0); Mean Corpuscular Volume 91.5 fL (80.0-98.0); Mean Platelet Volume 10.4 fL (9.4-12.3); Monocytes Absolute Auto 0.3 X10*3/uL (0.1-1.2); Neutrophils Absolute Auto 1.7 x10*3/uL (2.0-8.3); Neutrophils Percent Auto 44.1 % (45-73); Platelet Count 219 X10*3/uL (160-400); Red Cell Distribution Width 12.4 % (11.0-16.0); White Blood Count 3.8 X10*3/uL (4.8-10.8)
[2021-06-28 12:31] LABS: Estimated Average Glucose 100 mg/dL; Hemoglobin A1c % 5.1 %
[2021-06-28 13:19] LABS: Anion Gap 10 (12-20); Blood Urea Nitrogen 12 mg/dL (9-16); C Reactive Protein 0.08 mg/dL (< or = 0.50); Calcium 9.2 mg/dL (8.4-10.2); Carbon Dioxide 28 mmol/L (22-29); Chloride 106 mmol/L (96-108); Estimated Glomerular Filt Rate > 60; Glucose Random 61 mg/dL (60-115); Iron 122 mcg/dL (30-160); Percent Iron Saturation 32 % (15-50); Potassium 4.1 mmol/L (3.3-5.1); Sodium 140 mmol/L (135-145); Total Iron Binding Capacity 383 mcg/dL (228-428); Unsaturated Iron Binding 261 ug/dL
[2021-06-28 13:41] LABS: Ferritin 10 ng/mL (10-250); TSH reflex Free T4 1.43 uIU/mL (0.32-4.0); Vitamin D 25-OH Total 21.3 ng/mL (>30)
[2021-06-28 13:46] LABS: Folate 14.6 ng/mL (> or = 4.0); Vitamin B12 279 pg/mL (200-900)
[2021-06-29 15:02] LABS: PTHI 53 pg/mL (16-77)
[2021-07-02 15:21] LABS: Zinc 78 mcg/dL (60-130)
[2021-07-03 09:17] LABS: Vitamin A 30 mcg/dL (38-98)
[2021-07-03 12:37] LABS: Vitamin B1 16 nmol/L (8-30)
== END 2021-06-28 10:56 | disposition home or self-care (01) ==
LOC: HO.LAB 10:55
PROVIDERS: PCP Nurse Practitioner Family; Visit Provider Physician Assistant Surgical
DX: E66.3 Overweight (principal); R53.83 Other fatigue; K91.2 Postsurgical malabsorption, not elsewhere classified; Z90.3 Acquired absence of stomach [part of]; Z98.84 Bariatric surgery status; Z79.899 Other long term (current) drug therapy; Z71.3 Dietary counseling and surveillance
CPT/HCPCS: 36415; 80048; 82306; 82607; 82728; 82746; 83036; 83540; 83970; 84425; 84443; 84590; 84630; 85025; 86140; 99212

== ENCOUNTER → 2021-08-31 09:07 | Outpatient (BNVA) | payer MEDICARE, MEDICAID, SELFPAY | PROVIDERS: PCP Nurse Practitioner Family; Visit Provider Physician Assistant Surgical | DX: E66.3 Overweight (principal); L98.7 Excessive and redundant skin and subcutaneous tissue; Z98.84 Bariatric surgery status; Z68.27 Body mass index [BMI] 27.0-27.9, adult | CPT/HCPCS: 99212 ==

== ENCOUNTER 2022-03-08 10:11 | Outpatient (REF) | payer MEDICARE, MEDICAID, SELFPAY ==
[2022-03-08 11:08] LABS: MANUAL DIFF FLAG NO
[2022-03-08 11:47] LABS: Basophils Percent Auto 1.1 % (0-2); Eosinophils Absolute Auto 0.1 X10*3/uL (0.0-0.4); Eosinophils Percent Auto 3.4 % (0-4); Hematocrit 34.7 % (37.0-47.0); Lymphocytes Absolute Auto 1.6 X10*3/uL (1.2-4.9); Lymphocytes Percent Auto 41.7 % (20-40); Mean Corpuscular HGB Conc 31.7 g/dl (31.0-35.0); Mean Corpuscular Hemoglobin 27.8 pg (27.0-33.0); Mean Corpuscular Volume 87.6 fL (80.0-98.0); Mean Platelet Volume 10.5 fL (9.4-12.3); Monocytes Absolute Auto 0.3 X10*3/uL (0.1-1.2); Neutrophils Absolute Auto 1.7 x10*3/uL (2.0-8.3); Neutrophils Percent Auto 44.8 % (45-73); Platelet Count 234 X10*3/uL (160-400); Red Blood Count 3.96 X10*6/uL (4.20-5.50); Red Cell Distribution Width 13.2 % (11.0-16.0); White Blood Count 3.8 X10*3/uL (4.8-10.8)
[2022-03-08 12:03] LABS: Estimated Average Glucose 103 mg/dL; Hemoglobin A1c % 5.2 %
[2022-03-08 13:18] LABS: Alanine Aminotransferase 14 U/L (0-31); Albumin Level 4.2 g/dL (3.5-5.0); Alkaline Phosphatase 49 U/L (39-117); Anion Gap 11 (12-20); Aspartate Amino Transferase 18 U/L (5-31); Blood Urea Nitrogen 10 mg/dL (9-16); C Reactive Protein < 0.10 mg/dL (< or = 0.50); Carbon Dioxide 27 mmol/L (22-29); Chloride 104 mmol/L (96-108); Cholesterol 215 mg/dL; Estimated Glomerular Filt Rate > 60; Ferritin 8 ng/mL (10-250); Glucose Random 92 mg/dL (60-115); HDL Cholesterol 68 mg/dL; Insulin 5 uU/mL (2-29); Iron 89 mcg/dL (30-160); LDL Cholesterol Calculated 134 mg/dl; Percent Iron Saturation 23 % (15-50); Potassium 4.1 mmol/L (3.3-5.1); Sodium 138 mmol/L (135-145); TSH reflex Free T4 1.72 uIU/mL (0.32-4.0); Total Iron Binding Capacity 381 mcg/dL (228-428); Total Protein 6.7 g/dL (6.5-8.0); Triglycerides 66 mg/dL; Unsaturated Iron Binding 292 ug/dL; Vitamin D 25-OH Total 18.5 ng/mL (>30)
[2022-03-08 13:49] LABS: Folate 16.4 ng/mL (> or = 4.0); Vitamin B12 242 pg/mL (200-900)
[2022-03-12 11:54] LABS: Calcium (PTHI) 8.9 mg/dL (8.6-10.2); PTHI 65 pg/mL (16-77)
[2022-03-13 17:53] LABS: Zinc 71 mcg/dL (60-130)
[2022-03-14 13:23] LABS: Vitamin B1 17 nmol/L (8-30)
[2022-03-14 14:24] LABS: Vitamin A 27 mcg/dL (38-98)
== END 2022-03-08 10:12 | disposition home or self-care (01) ==
LOC: HO.LAB 10:11
PROVIDERS: PCP Nurse Practitioner Family; Visit Provider Physician Assistant Surgical
DX: K91.2 Postsurgical malabsorption, not elsewhere classified (principal); Z98.84 Bariatric surgery status; E66.3 Overweight; L98.7 Excessive and redundant skin and subcutaneous tissue
CPT/HCPCS: 36415; 80053; 80061; 82306; 82607; 82728; 82746; 83036; 83525; 83540; 83970; 84425; 84443; 84590; 84630; 85025; 86140; 99212

== ENCOUNTER → 2022-09-12 09:06 | Outpatient (BNVA) | payer OTHER, MEDICAID, SELFPAY | PROVIDERS: PCP Nurse Practitioner Family; Visit Provider Physician Assistant Surgical | DX: L98.7 Excessive and redundant skin and subcutaneous tissue (principal); E66.09 Other obesity due to excess calories; K90.49 Malabsorption due to intolerance, not elsewhere classified; E50.9 Vitamin A deficiency, unspecified; E55.9 Vitamin D deficiency, unspecified; Z68.27 Body mass index [BMI] 27.0-27.9, adult; Z90.3 Acquired absence of stomach [part of] | CPT/HCPCS: 99212 ==